=== PATIENT | female | born 1985 | race Caucasian/White ===

== ENCOUNTER 2016-11-12 04:18 | Emergency (ER) | payer OTHER ==
--- NOTE | 2016-11-12 04:34 | PD ---
HPI Chief Complaint: Psychiatric Symptoms Time Seen by Provider: 04:24 Travel History International Travel<30 days: No Contact w/Intl Traveler<30days: No Traveled to known affect area: No History of Present Illness HPI 31-year-old female presents under [place] act initiated by the [employer]. The patient reports that it is her birthday. She reports that she went out with her friends to drink. She reports that upon returning home with her friends she was feeling very lonely because her family is not here. She reports that she has a history of cutting herself "just to feel" but not in an effort to kill her self. She reports that because she is feeling lonely she cut her right thigh with a knife. One of her friends called the police and she was placed under [place] act. She denies feeling suicidal. She admits to history of bipolar disorder and depression. She denies any homicidal ideation, hallucinations, illicit drug use. He endorses alcohol use tonight. She is complaining of mild pain, burning sensation, the site of the laceration. Last tetanus vaccination unknown. She has no other complaints at this time. [facility] Social History Alcohol Use: Yes Tobacco Use: No Substance Use: No Allergies-Medications (Allergen,Severity, Reaction): Coded Allergies: Augmentin (Verified Allergy, Severe, Rash, 11/12/16) Clindamycin (Verified Allergy, Severe, Rash, 11/12/16) Sulfa (Verified Allergy, Severe, Rash, 11/12/16) Reported Meds & Prescriptions Reported Meds & Active Scripts Active Reported Rexulti (Brexpiprazole) 1 Mg Tab 1 Mg PO DAILY Clonazepam 1 Mg Tab 1 Mg PO DAILY Temazepam 30 Mg Cap 30 Mg PO HS PRN Hydroxyzine HCl 50 Mg Tab 50 Mg PO HS Wellbutrin SR 12 HR (Bupropion HCl) 150 Mg Tab 150 Mg PO DAILY Review of Systems Except as stated in HPI: all other systems reviewed are Neg Physical Exam Narrative Examined in the presence of a female nurse. GENERAL: Well-developed well-nourished female in no acute distress SKIN: Warm and dry. Superficial linear abrasions noted to the lateral proximal right thigh. Superficial linear laceration measuring approximately 2.5 cm to the lateral right thigh. HEAD: Atraumatic. Normocephalic. EYES: Pupils equal and round. No scleral icterus. No injection or drainage. ENT: No nasal bleeding or discharge. Mucous membranes pink and moist. NECK: Trachea midline. No JVD. CARDIOVASCULAR: Regular rate and rhythm. No murmur appreciated. RESPIRATORY: No accessory muscle use. Clear to auscultation. Breath sounds equal bilaterally. GASTROINTESTINAL: Abdomen soft, non-tender, nondistended. Hepatic and splenic margins not palpable. MUSCULOSKELETAL: No obvious deformities. NEUROLOGICAL: Awake and alert. No obvious cranial nerve deficits. Motor grossly within normal limits. Normal speech. PSYCHIATRIC: Appropriate mood. Insight and judgment appear normal. Data Data Last Documented VS Vital Signs Date Time Temp Pulse Resp B/P Pulse Ox O2 Delivery O2 Flow Rate FiO2 11/12/16 04:38 97.8 107 18 117/72 98 Room Air Orders Complete Blood Count With Diff (11/12/16 04:31) Comprehensive Metabolic Panel (11/12/16 04:31) Ed Urine Pregnancytest Poc (11/12/16 04:31) Psych Screen (11/12/16 04:31) Drug Screen, Random Urine (11/12/16 04:31) Alcohol (Ethanol) (11/12/16 04:31) Tetanus/Diphtheria Tox Adult (Tetanus/Di (11/12/16 05:00) Labs Laboratory Tests Test 11/12/16 04:35 White Blood Count 9.9 TH/MM3 Red Blood Count 4.85 MIL/MM3 Hemoglobin 14.7 GM/DL Hematocrit 42.2 % Mean Corpuscular Volume 87.0 FL Mean Corpuscular Hemoglobin 30.4 PG Mean Corpuscular Hemoglobin 34.9 % Concent Red Cell Distribution Width 13.1 % Platelet Count 340 TH/MM3 Mean Platelet Volume 8.3 FL Neutrophils (%) (Auto) 63.2 % Lymphocytes (%) (Auto) 26.0 % Monocytes (%) (Auto) 8.1 % Eosinophils (%) (Auto) 2.1 % Basophils (%) (Auto) 0.6 % Neutrophils # (Auto) 6.3 TH/MM3 Lymphocytes # (Auto) 2.6 TH/MM3 Monocytes # (Auto) 0.8 TH/MM3 Eosinophils # (Auto) 0.2 TH/MM3 Basophils # (Auto) 0.1 TH/MM3 CBC Comment DIFF FINAL Differential Comment Sodium Level 144 MEQ/L Potassium Level 3.7 MEQ/L Chloride Level 109 MEQ/L Carbon Dioxide Level 24.9 MEQ/L Anion Gap 10 MEQ/L Blood Urea Nitrogen 12 MG/DL Creatinine 0.97 MG/DL Estimat Glomerular Filtration 68 ML/MIN Rate Random Glucose 108 MG/DL Calcium Level 8.8 MG/DL Total Bilirubin 0.2 MG/DL Aspartate Amino Transf 15 U/L (AST/SGOT) Alanine Aminotransferase 28 U/L (ALT/SGPT) Alkaline Phosphatase 85 U/L Total Protein 7.5 GM/DL Albumin 3.9 GM/DL Urine Opiates Screen NEG Urine Barbiturates Screen NEG Urine Amphetamines Screen NEG Urine Benzodiazepines Screen NEG Urine Cocaine Screen NEG Urine Cannabinoids Screen NEG Ethyl Alcohol Level 203 MG/DL [facility] Medical Decision Making Medical Screen Exam Complete: Yes Emergency Medical Condition: Yes Medical Record Reviewed: Yes Differential Diagnosis Substance-induced mood disorder, adjustment reaction, acute psychosis, major depressive disorder Narrative Course 31-year-old female presents under [place] act for psychiatric evaluation. She has superficial linear abrasions to the lateral proximal right thigh, self- inflicted, as well as a superficial laceration. The laceration was repaired with Dermabond and Steri-Strips, she verbally consented. Tetanus status updated. Mental health screening discussed with the patient. Psychiatric screen ordered. Alcohol level was 203. Lab work otherwise unremarkable. The patient is medically cleared for psychiatric disposition. Procedures Procedure Narrative LACERATION LOCATION: Lateral proximal right thigh LENGTH: 2.5 cm NUMBER OF STITCHES/EAN: Close with Dermabond and Steri-Strips REPAIR: The wound was copiously irrigated and explored without evidence of foreign body, tendon injury or neurovascular injury. The wound was closed using Dermabond and Steri-Strips. This was a single layer repair. A sterile dressing was applied. The patient was advised to keep the dressing clean and dry. Patient tolerated the procedure well. Diagnosis Primary Impression: Alcohol intoxication Qualified Code: F10.120 - Alcohol intoxication, uncomplicated Additional Impression: Mood disorder Darin Hammonds Nov 12, 2016 04:34
[2016-11-12 04:38] VITALS: BP 117/72; PULSE 107; RESP 18; TEMP 97.8; O2SAT 98
[2016-11-12 04:45] LABS: AUTOMATED NEUTROPHIL # 6.3 TH/MM3 (1.8-7.7); BASOPHIL # 0.1 TH/MM3 (0-0.2); BASOPHIL % 0.6 % (0.0-2.0); EOSINOPHIL # 0.2 TH/MM3 (0-0.4); EOSINOPHIL % 2.1 % (0.0-4.0); HEMATOCRIT 42.2 % (35.0-46.0); HEMO FLAGS DIFF FINAL; LYMPHOCYTE # 2.6 TH/MM3 (1.0-4.8); MEAN CORPUSCULAR HEMOGLOBIN 30.4 PG (27.0-34.0); MEAN CORPUSCULAR HGB CONC 34.9 % (32.0-36.0); MONO % 8.1 % (0.0-8.0); NEUT % 63.2 % (16.0-70.0); PLATELET COUNT 340 TH/MM3 (150-450); RED BLOOD COUNT 4.85 MIL/MM3 (4.00-5.30); RED CELL DISTRIBUTION WIDTH 13.1 % (11.6-17.2); WHITE BLOOD COUNT 9.9 TH/MM3 (4.0-11.0)
[2016-11-12 04:48] LABS: AMPHETAMINE, URINE NEG (NEG); BARBITURATES, URINE NEG (NEG); COCAINE, URINE NEG (NEG)
[2016-11-12] MEDS ORDERED: CLON1TAB PO (04:48)
[2016-11-12] MEDS ORDERED: TEMA30CA PO (04:48)
[2016-11-12] MEDS ORDERED: BUPR150CR PO (04:48)
[2016-11-12] MEDS ORDERED: HYDR50TA94 PO (04:48)
[2016-11-12] MEDS ORDERED: BREX1TAB3 PO (04:51)
[2016-11-12] MEDS ORDERED: TETANUS/DIPHTHERIA TOXOID ADULT 0.5 ML VIAL IM ONE (05:00)
[2016-11-12 05:10] LABS: ANION GAP 10 MEQ/L (5-15); AST (GOT) 15 U/L (15-37); BICARBONATE 24.9 MEQ/L (21.0-32.0); BLOOD UREA NITROGEN 12 MG/DL (7-18); CHLORIDE 109 MEQ/L (98-107); GLOMERULAR FILTRATION RATE 68 ML/MIN (>89); POTASSIUM 3.7 MEQ/L (3.5-5.1); SODIUM (NA) 144 MEQ/L (136-145)
[2016-11-12 05:13] LABS: ALKALINE PHOSPHATASE 85 U/L (45-117); ALT (GPT) 28 U/L (10-53); TOTAL BILIRUBIN ADULT 0.2 MG/DL (0.2-1.0)
[2016-11-12] MEDS ORDERED: ACETAMINOPHEN 500 MG CPLT PO ONE (09:15)
[2016-11-12 13:20] VITALS: BP 116/77; PULSE 100; TEMP 98.1; O2SAT 96
--- NOTE | 2016-11-12 14:20 | PD ---
History of Present Illness Chief Complaint: Psychiatric Symptoms Time Seen by Provider: 13:55 Travel History International Travel<30 Days: No Contact w/Intl Traveler<30days: No Known affected area: No Legal Status Legal Status: [place] Act History of Present Illness: History of Present Illness HPI 31-year-old female with history of bipolar disorder, depression and anxiety that presents under [place] act initiated by the Police Department. As per the report the patient had been out drinking with some friends and celebrating her birthday. After a few drinks she went home and she was feeling lonely and then she proceeded cut herself. She reports that she has a history of cutting herself "just to feel" but not in an effort to kill her self. She denies feeling suicidal. She denies any homicidal ideation, hallucinations, illicit drug use. He endorses alcohol use tonight. EMR reviewed. This is her [place] with [facility] Current BAL on ed arrival is 203. Patient is monitored in J pod and she presented no behavioral concerns. She is alert and oriented. She is cooperative. At this time she is clinically sober with no symptoms of withdrawal. There is no tai or hypomania and no psychosis.No significant symptoms of depression. She reports that she stopped her Psychiatric treatment 2 months ago after she lost her health insurance. She has now regained insurance and has an appointment for a psychiatric provider in [place]. [facility] Past Medical History Bipolar Disorder: Yes Anxiety: Yes Depression: Yes ?: Not LMP: "MAYBE THREE WEEKS AGO" Psychiatric History Psychiatric History Hx Psychiatric Treatment: No hx of [facility]. Had been in [place] w Kellie Morel until 2 months ago. History of Inpatient Treatment: No Guns or firearms in home: No Social History Single female. Lives by herself. Hx Alcohol Use: Yes Hx Tobacco Use: No Hx Substance Use: No Hx of Substance Use Treatment: No Family Psychiatric History Negative. Allergies-Medications (Allergen,Severity, Reaction): Coded Allergies: Augmentin (Verified Allergy, Severe, Rash, 11/12/16) Clindamycin (Verified Allergy, Severe, Rash, 11/12/16) Sulfa (Verified Allergy, Severe, Rash, 11/12/16) Reported Meds & Prescriptions Reported Meds & Active Scripts Active Reported Rexulti (Brexpiprazole) 1 Mg Tab 1 Mg PO DAILY Clonazepam 1 Mg Tab 1 Mg PO DAILY Temazepam 30 Mg Cap 30 Mg PO HS PRN Hydroxyzine HCl 50 Mg Tab 50 Mg PO HS Wellbutrin SR 12 HR (Bupropion HCl) 150 Mg Tab 150 Mg PO DAILY Review of Systems Except as stated in HPI: all other systems reviewed are Neg Exam Alert: Yes [place]: Person (ox4) Mood: Calm Affect: Appropriate Speech: Clear, Logical Eye Contact: Normal Memory Intact: Comment (no impairment) Hallucinations: Other (negative) Delusions: No Suicidal: Ideation (deneis any) Homicidal: Ideation (deneis any) Insight/Judgement Fair. Not impaired. MDM Medical Decision Making Medical Record Reviewed: Yes Assessment/Plan 31 year old female with hx of bipolar disorder as well as SIB who reports that she went out with some friends to celebrate her birthday and drank alcohol. She states that when she drinks she will usually engage in SIB. She denies that this was an attempt at harming herself. Denies any intent of doing so. At [facility] time she does not meet criteria for BA and will be discharged. psychoeducation is provided. Follow up with [facility] provider. Orders Complete Blood Count With Diff (11/12/16 04:31) Comprehensive Metabolic Panel (11/12/16 04:31) Ed Urine Pregnancytest Poc (11/12/16 04:31) Psych Screen (11/12/16 04:31) Drug Screen, Random Urine (11/12/16 04:31) Alcohol (Ethanol) (11/12/16 04:31) Tetanus/Diphtheria Tox Adult (Tetanus/Di (11/12/16 05:00) Acetaminophen (Tylenol) (11/12/16 09:15) Diet Regular Basic (11/12/16 Breakfast) Diet Regular Basic (11/12/16 Lunch) Results Vital Signs Date Time Temp Pulse Resp B/P Pulse Ox O2 Delivery O2 Flow Rate FiO2 11/12/16 04:38 97.8 107 18 117/72 98 Room Air Laboratory Tests Test 11/12/16 04:35 White Blood Count 9.9 Red Blood Count 4.85 Hemoglobin 14.7 Hematocrit 42.2 Mean Corpuscular Volume 87.0 Mean Corpuscular Hemoglobin 30.4 Mean Corpuscular Hemoglobin 34.9 Concent Red Cell Distribution Width 13.1 Platelet Count 340 Mean Platelet Volume 8.3 Neutrophils (%) (Auto) 63.2 Lymphocytes (%) (Auto) 26.0 Monocytes (%) (Auto) 8.1 Eosinophils (%) (Auto) 2.1 Basophils (%) (Auto) 0.6 Neutrophils # (Auto) 6.3 Lymphocytes # (Auto) 2.6 Monocytes # (Auto) 0.8 Eosinophils # (Auto) 0.2 Basophils # (Auto) 0.1 CBC Comment DIFF FINAL Differential Comment Sodium Level 144 Potassium Level 3.7 Chloride Level 109 Carbon Dioxide Level 24.9 Anion Gap 10 Blood Urea Nitrogen 12 Creatinine 0.97 Estimat Glomerular Filtration 68 Rate Random Glucose 108 Calcium Level 8.8 Total Bilirubin 0.2 Aspartate Amino Transf 15 (AST/SGOT) Alanine Aminotransferase 28 (ALT/SGPT) Alkaline Phosphatase 85 Total Protein 7.5 Albumin 3.9 Urine Opiates Screen NEG Urine Barbiturates Screen NEG Urine Amphetamines Screen NEG Urine Benzodiazepines Screen NEG Urine Cocaine Screen NEG Urine Cannabinoids Screen NEG Ethyl Alcohol Level 203 Diagnosis Primary Impression: Alcohol intoxication Additional Impression: Mood disorder Psychiatrically Cleared: Yes Problem Qualifiers Primary Impression: Alcohol intoxication Qualified Code: F10.120 - Alcohol intoxication, uncomplicated WongViviana jeffriess Alissa Cooper [employer] Nov 12, 2016 14:20
[2016-11-12] MEDS ORDERED: ONDANSETRON ODT 4 MG TAB PO ONE (15:45)
== END 2016-11-12 19:02 | disposition home or self-care (01) ==
LOC: NEPD 04:18 → NEPJ 19:02
DX: S71.111A Laceration without foreign body, right thigh, initial encounter (principal); F31.9 Bipolar disorder, unspecified; F10.120 Alcohol abuse with intoxication, uncomplicated; Y90.7 Blood alcohol level of 200-239 mg/100 ml; X78.1XXA Intentional self-harm by knife, initial encounter; Y92.009 Unspecified place in unspecified non-institutional (private) residence as the place of occurrence of the external cause; Z23 Encounter for immunization; Z79.899 Other long term (current) drug therapy
CPT/HCPCS: 12001; 80053; 80307; 84703; 85025; 90471; 90714